=== PATIENT | female | born 1990 | race Caucasian/White ===

== ENCOUNTER 2017-02-04 16:58 | Emergency (ER) | payer OTHER ==
[~2017-02-04] VITALS: Wt 73.0 kg
[2017-02-04] MEDS ORDERED: LORAZEPAM 1 MG TAB PO ONE (18:00)
--- NOTE | 2017-02-04 18:25 | RADRPT ---
PROCEDURE: XR Chest. CLINICAL INDICATION: Chest pain. TECHNIQUE: Single frontal view of the chest was obtained COMPARISON: None FINDINGS: The heart and mediastinum are within normal limits. The lungs are clear. There is no pleural effusion or pneumothorax. IMPRESSION: No acute disease. RPTAT: [facility] Physician Eric Date Time Electronically viewed and signed by Mahesh Tobar Physician on 02/04/2017 18:25 RS/
--- NOTE | 2017-02-04 18:43 | ERD ---
ER Documentation Chief Complaint Date/Time DATE: 02/04/17 TIME: 18:35 Chief Complaint CHEST PAIN X 3 DAYS HPI This a 26-year-old female who presents to the emergency department today complaining of some chest pain for 3 days that goes around to her back in the left side of her ribs. Patient states it is worse with movement. States she had a cough for approximately a month. States that sometimes she feels like she cannot catch her breath and that she is anxious. States that sometimes it happens when she is at work. States she has taken Robitussin. Denies any fevers or chills. Denies any abdominal pain ROS All systems reviewed and are negative except as per history of present illness. Medications Home Meds Active Scripts Dextromethorphan Hb-Promethazine Hcl (Promethazine DM Syrup) 473 Ml Syrup, 5 ML PO Q6H Y for COUGH, #4 OZ Prov:NOÉ SLAUGHTER PA-C 02/04/17 Lorazepam* (Ativan*) 0.5 Mg Tablet, 0.5 MG PO Q8, #10 TAB Prov:NOÉ SLAUGHTER PA-C 02/04/17 Naproxen* (Naprosyn*) 500 Mg Tablet, 500 MG PO BID Y for PAIN AND/OR INFLAMMATION, #30 TAB Prov:NOÉ SLAUGHTER PA-C 02/04/17 PMhx/Soc Medical and Surgical Hx: pt denies Medical Hx, pt denies Surgical Hx Physical Exam Vitals Vital Signs Date Time Temp Pulse Resp B/P Pulse Ox O2 Delivery O2 Flow Rate FiO2 02/04/17 17:01 98.0 116 18 136/69 99 Physical Exam Const: NAD Head: Atraumatic Eyes: Normal Conjunctiva ENT: Normal External Ears, Nose and Mouth. Neck: Full range of motion..~ No meningismus. Resp: Clear to auscultation bilaterally. No absent breath sounds. No wheezing. Tenderness palpation left side of rib Cardio: Regular rate and rhythm, no murmurs Abd: Soft, non tender, non distended. Normal bowel sounds Skin: No petechiae or rashes Neur: Awake and alert Psych: Normal Mood and Affect Results 24 hrs Current Medications Medications (Trade) Dose Ordered Sig/Dennys Route PRN Reason Start Time Stop Time Status Last Admin Dose Admin Lorazepam (Ativan) 1 mg ONCE ONCE PO 02/04/17 18:00 02/04/17 18:01 DC 02/04/17 17:44 DIAGNOSTIC IMAGING REPORT Patient: MARGARETTE SANCHEZ : 1990 Age: 26 Sex: F MR #: [id number] DOS: 02/04/17 0000 Ordering MD: NOÉ SLAUGHTER PA-C Location: [facility] Room/Bed: PROCEDURE: XR Chest. CLINICAL INDICATION: Chest pain. TECHNIQUE: Single frontal view of the chest was obtained COMPARISON: None FINDINGS: The heart and mediastinum are within normal limits. The lungs are clear. There is no pleural effusion or pneumothorax. IMPRESSION: No acute disease. RPTAT: [facility] Physician Eric Date Time Electronically viewed and signed by Physician Eric on 02/04/2017 18:25 RS/ CC: NOÉ SLAUGHTER PA-C Procedures/MDM This a 26-year-old female presents the emergency department today complaining of some chest pain on the left side of her ribs that moves up towards her back. Patient was also complaining of some shortness of breath therefore did obtain an EKG and chest x-ray EKG read and interpreted by Dr. Woodward: Rate [address] elevation. No QT prolongation. Sinus tachycardia. Low suspicion for acute MD, PE, pericarditis Chest x-ray is negative. Lungs are clear. There is no pleural effusion or pneumothorax. Low suspicion for PE, abscess, pleural effusion, pneumothorax, pneumonia Patient symptoms at this time is consistent with chest wall pain. Patient symptoms may be related to costochondritis given her history of cough. Her symptoms may also be anxiety related given that she feels shortness of breath and anxious at work. Patient was given 1 mg of Ativan here in the emergency department and chest pain improved. I have asked Steve to the patient that we will give her a very low dose and short course of the Ativan for home but that she would need to follow-up with her primary care physician for further evaluation of anxiety related symptoms. Patient also begin a prescription for Naprosyn for possible costochondritis. I have also given her promethazine DM for her cough At this time the patient is stable for discharge and outpatient management. Patient should follow up with their PCP in the next 1-2 days. They may return to the emergency department sooner for any persistent or worsening of symptoms. Patient understood and agreed with the plan. Departure Diagnosis: Primary Impression: Chest pain Chest pain type: unspecified Qualified Code: R07.9 - Chest pain, unspecified type Condition: NOÉ Zaman PA-C Feb 04, 2017 18:42
[2017-02-04] MEDS ORDERED: NAPR-260 PO (18:44)
[2017-02-04] MEDS ORDERED: LORA-441 PO (18:44)
[2017-02-04] MEDS ORDERED: D-ME473S18 PO (18:45)
[2017-02-04 19:27] VITALS: BP 132/86; PULSE 95; RESP 20; TEMP 98.7
== END 2017-02-04 19:28 | disposition home or self-care (01) ==
LOC: FTE 16:58
DX: R07.9 Chest pain, unspecified (principal)
CPT/HCPCS: 71010; 93005; Z7502; Z7610